=== PATIENT | female | born 1945 ===

== ENCOUNTER 2025-06-17 12:58 | Emergency (ER) | payer MEDICARE, SELFPAY ==
--- NOTE | ~2025-06-17 | XR_ITS ---
EXAMINATION: XR chest 2V 06/17/2025 15:27 INDICATION: Shortness of breath. Upper respiratory infection. PROCEDURE: 2 view chest COMPARISON: No prior studies for comparison. FINDINGS: The lungs are clear. The cardiomediastinal silhouette is within normal limits. There are no pleural effusions. There is no pneumothorax suspected. IMPRESSION: 1: NO ACUTE CARDIOPULMONARY DISEASE. Reviewed, dictated and finalized at location O. E LAB ANALYST
--- NOTE | ~2025-06-17 | CT_ITS ---
EXAMINATION: CTA chest PE protocol DATE: 06/17/2025 17:07 INDICATION: Shortness of breath TECHNIQUE: Computed tomography (CT) pulmonary angiogram of the chest was performed with 100 mL Omnipaque-350 intravenous contrast. Additional 3D reconstructions utilizing coronal maximum intensity projection (MIP) were performed. Automated exposure control and iterative reconstruction technique were employed. The dose-length product was 142.45 mGy-cm. COMPARISON: None FINDINGS: No pulmonary embolism. Mild emphysema. No pneumonia, pulmonary edema, pleural effusion or pneumothorax. Heart size is normal. Small amount of atherosclerotic coronary artery calcification. No pericardial effusion. Thoracic aorta is normal in caliber with no dissection. No pathologically enlarged thoracic lymphadenopathy. Visualized upper abdomen is unremarkable. Bones are unremarkable. IMPRESSION: 1. No pulmonary embolism or other acute cardiopulmonary disease. 2. Mild emphysema. Reviewed, dictated and finalized at location A. ER STITCHER
--- OUTSIDE RECORDS SUMMARY | 2025-06-17 13:01 | XMS_ITS | Encounter Summary ---
Author Organization [facility] Address [address] [place] [address] Care Team Providers Care Single Ending Machine Operator Name Role Phone Alis Hendrix RN Unavailable Unavailable Jasiel Rodriguez MD Primary Care Provider Encounter Details Date Type Department Care Team (Late st Contact Info) Description 04/30/2025 Results Follow-Up [facility] - Internal Medicine [address] [facility] [address] [place] [address] Jasiel Rodriguez MD [address] [place] [address] [address] [place] [address] Social History Tobacco Use Types Packs/Day Years Used Date Smoking Tobacco: Former Cigarettes 50 1 06/25/1965 - 04/25/2016 Smokeless Tobacco: Never Alcohol Use Standard Drinks/Week Comments Yes 0 (1 standard drink = 0.6 oz pur e alcohol) socially PHQ-2 Answer Date Recorded Patient Health Questionnaire-2 Score 0 04/27/2025 Comments No Sex and Gender Information Value Date Recorded Sex Assigned at Not on file Legal Sex Female 6:14 AM INTERIOR WIRER Gender Identity Not on file Sexual Orientation Not on file documented as of this encounter Functional Status * Is person deaf or have serious hearing difficulty? Answer Date of Assessment Author No 04/26/2016 1:51 AM INTERIOR WIRER Lila Sterling RN * Is person blind or have serious difficulty seeing? Answer Date of Assessment Author No 04/26/2016 1:51 AM Lila Monzon RN * Does person have serious difficulty walking/climbing stairs? Answer Date of Assessment Author No 04/26/2016 1:51 AM Lila Monzon RN * Does person have difficulty dressing/bathing? Answer Date of Assessment Author No 04/26/2016 1:51 AM Lila Monzon RN * Does person have difficulty doing errands alone? Answer Date of Assessment Author No 04/26/2016 1:51 AM Lila Monzon RN documented as of this encounter Mental Status * Does person have difficulty concentrating/remembering/making decisions? Answer Entry Date Author No 04/26/2016 1:51 AM Lila Monzon RN documented in this encounter Plan of Treatment Upcoming Encounters Date Type Department Care Team (Late st Contact Info) Description 10/29/2025 9:00 AM CDT Office Visit [facility] - Internal Medicine [address] [place] [address] [place] [phone] Jasiel Rodriguez MD [address] [place] [address] [address] [place] [address] documented as of this encounter Visit Diagnoses Not on filedocumented in this encounter Care Teams Single Ending Machine Operator Relationship Specialty Start Date End Date Jasiel Rodriguez MD [address] [place] [phone] PCP - General Internal Medicine 04/29/25 Alis Hendrix RN Registered Nurse - Cardiopulmonary Rehab 04/26/16 documented as of this encounter
--- OUTSIDE RECORDS SUMMARY | 2025-06-17 13:01 | XMS_ITS | Clinical Summary ---
Author Organization [facility] Address [address] [place] [address] Care Team Providers Care Earth Auger Operator Name Role Phone Alis Hendrix RN Unavailable Unavailable Jasiel Rodriguez MD Primary Care Provider Source Comments [facility],non-owned Affiliates and Associated Physician Practices is amultiple site organization consisting of ambulatory clinics and hospital sitesin [place], [place], [place] and [place]. This disclosure is being madepursuant to the Care Everywhere program and may not contain all information available regarding this patient. Last updated 18.[facility] Allergies Active Allergy Reactions Criticality Noted Date Comments Aspirin Anaphylaxis High 07/09/2019 Shellfish Anaphylaxis High 07/09/2019 Throat swelling [place] Angioedema High 07/09/2019 Throat swelling, itching Medications * Be aware that medications may not be up to date on this document. Alwaysverify current medications with the patient. fluticasone-umeclidiniu m-vilanterol (Trelegy Ellipta) 100-62.5-25 MCG/ACT inhalerIndications:Business Applications Specialist nasir obstructive pulmonary disease, unspecified COPD type (HCC) Inhale 1 (one) puff by mouth once daily 60 Each 5 04/29/20 25 Active albuterol HFA (Proventil; Ventolin; Proair) 108 (90 Base) MCG/ACT inhalerIndications:Business Applications Specialist nasir obstructive pulmonary disease, unspecified COPD type (HCC) Inhale 2 (two) puffs by mouth every 6 hours as needed 6.7 g 3 04/29/20 25 Active simvastatin (Zocor) 40 MG tabletIndications:Pure hypercholesterolemia Take 1 (one) tablet by mouth at bedtime 90 tablet 3 04/29/20 25 Active albuterol (Proventil;Ventolin) (2.5 MG/3ML) 0.083% nebulizer solution Inhale 2.5 (two and one-half) mg by mouth every 4 hours as needed for shortness of breath 75 mL 05/21/20 25 Active Active Problems Problem Noted Date Diagnosed Date Type 2 diabetes mellitus wit hout complication, without long-term current use of insulin 04/29/2025 Pure hypercholesterolemia 04/29/2025 COPD (chronic obstructive pulmonary disease) Overview (09/23/2020): Brad Sarmiento MD 03/17/20 Atherosclerosis of aorta Overview (09/23/2020): Chest xray 04/25/16 Encounters Date Type Department Care Team Description 04/30/2025 Results Follow-Up [facility] - Internal Medicine [address] [place] [phone] Jasiel Rodriguez MD 04/29/2025 10:45 AM SPACE SYSTEMS OPERATIONS MANAGER Office Visit [facility] - Internal Medicine [address] [place] [phone] Jasiel Rodriguez MD Routine general medical examination at health care facility (Primary Dx); Type 2 diabetes mellitus without complication, without long-term current use of insulin (HCC); Chronic obstructive pulmonary disease, unspecified COPD type (HCC); Chronic right shoulder pain; Pure hypercholesterolemia; Encounter for immunization; Need for influenza vaccination; Need for prophylactic vaccination and inoculation against influenza 04/29/2025 Travel from Last 3 Months Immunizations Immunization Administration Dates Next Due COVID MODERNA 12+ yr 50mcg/0.5mL 04/29/2025,03/18 Covid Pfizer primary monoval ent 12+ yr 0.3mL Purple cap 06/01/2021,09/25/2020,09/04/2020 INFLUENZA VACCINE, ADJUVANTE D, QUADR. (FLUAD QUADRIVALENT; 65Y+) (AIIV4) 08/02/2023 INFLUENZA VACCINE, ADJUVANTE D, TRIV. (FLUAD TRIVALENT; 65Y+) (AIIV3) 04/29/2025,04/01/2024 INFLUENZA VACCINE, HIGH-DOSE , QUADR. (FLUZONE HIGH-DOSE QUADRIVALENT; 65Y+), 0.7 ML (HD-IIV4) 03/17/2020 INFLUENZA VACCINE, QUADR. (F LUZONE; FLULAVAL; FLUARIX; AFLURIA QUADRIVALENT; 6MO+), 0.5 ML (IIV4) 04/27/2016 Pneumococcal Pcv13 Conj 07/09/2019 Zoster Hzv Vacc Recombinant Inj Im 07/09/2019 Family History Relation Name Status Comments Father Mother Social History Tobacco Use Types Packs/Day Years Used Date Smoking Tobacco: Former Cigarettes 50 1 06/25/1965 - 04/25/2016 Smokeless Tobacco: Never Tobacco Cessation:Counseling Given: Not Answered Alcohol Use Standard Drinks/Week Comments Yes 0 (1 standard drink = 0.6 oz pur e alcohol) socially PHQ-2 Answer Date Recorded Patient Health Questionnaire-2 Score 0 04/27/2025 Comments No Sex and Gender Information Value Date Recorded Sex Assigned at Not on file Legal Sex Female 6:14 AM SPACE SYSTEMS OPERATIONS MANAGER Gender Identity Not on file Sexual Orientation Not on file Last Filed Vital Signs Vital Sign Reading Time Taken Comments Blood Pressure 137/88 04/29/2025 11:08 AM SPACE SYSTEMS OPERATIONS MANAGER Pulse 90 04/29/2025 10:50 AM SPACE SYSTEMS OPERATIONS MANAGER Temperature 36.2 C (97.1 F) 07/25/2022 9:18 AM SPACE SYSTEMS OPERATIONS MANAGER Respiratory Rate 18 04/29/2025 10:50 AM SPACE SYSTEMS OPERATIONS MANAGER Oxygen Saturation 95% 04/29/2025 10:50 AM SPACE SYSTEMS OPERATIONS MANAGER Inhaled Oxygen Concentration - - Weight 50.3 kg (111 lb) 04/29/2025 10:50 AM SPACE SYSTEMS OPERATIONS MANAGER Height 157.5 cm (5' 2) 04/29/2025 10:50 AM SPACE SYSTEMS OPERATIONS MANAGER Body Mass Index 20.3 04/29/2025 10:50 AM SPACE SYSTEMS OPERATIONS MANAGER Plan of Treatment Upcoming Encounters Date Type Department Care Team (Late st Contact Info) Description 10/29/2025 9:00 AM CDT Office Visit [facility] - Internal Medicine [address] [place] [address] Jasiel Rodriguez MD [address] [place] [address] Health Maintenance Due Date Last Done Comments DTAP/TDAP/TD VACCINES (1 - Tdap) 1964 PNEUMOCOCCAL VACCINE 50+ (2 of 2 - PPSV23, PCV20, or PCV21) 09/03/2019 07/09/2019 ZOSTER VACCINE (2 of 2) 09/03/2019 07/09/2019 Respiratory Syncytial Virus (RSV) Vaccine Pt: or over 60 yrs (1 - 1-dose 75+ series) 2021 DIABETES RETINOPATHY SCREENING 04/29/2025 DIABETES-FOOT EXAM WITH MONOFILAMENT 04/29/2025 COVID-19 VACCINE ( season) 2025 04/29/2025, 04/01/2024, 06/01/2021, Additional history exists DIABETES-HGB A1C 10/27/2025 04/29/2025, , 02/23/2023, Additional history exists DIABETES - URINE PROTEIN SCREENING 04/29/2026 04/29/2025 DIABETES-SERUM CREATININE 04/29/20262024, 04/16/2024, 02/23/2023, Additional history exists MEDICARE AWV 12 MONTHS 04/29/2026 04/29/2025, 04/01/2024, 01/23/2023, Additional history exists HEPATITIS C SCREENING Completed 07/09/2019 BONE DENSITY TESTING Completed 01/28/2022 DEPRESSION SCREENING Completed 04/29/2025, 08/02/2023, 07/25/2022, Additional history exists INFLUENZA VACCINE Completed 04/29/2025, , 08/02/2023, Additional history exists HEPATITIS B VACCINE Aged Out No longe r eligible based on patient's age to complete this topic HIB VACCINE Aged Out No longer eligi ble based on patient's age to complete this topic HPV VACCINE Aged Out No longer eligi ble based on patient's age to complete this topic MENINGOCOCCAL (Group B) VACCINE SHARED DECISION-MAKING Aged Out No longer eligible based on patient's age to complete this topic MENINGOCOCCAL GROUPS A/C/Y/W VACCINE Aged Out No longer eligible based on patient's age to complete this topic Procedures Procedure Name Priority Date/Time Associated Diagnosis Comments T4 FREE Routine 04/29/2025 12:03 PM SPACE SYSTEMS OPERATIONS MANAGER URINALYSIS MICROSCOPIC ONLY REFLEXED Routine 04/29/2025 12:03 PM SPACE SYSTEMS OPERATIONS MANAGER VITAMIN B12 Routine 04/29/2025 12:03 PM SPACE SYSTEMS OPERATIONS MANAGER Type 2 diabetes mellitus without complication, without long-term current use of insulin ([facility]) LIPID PROFILE Routine 04/29/2025 12:03 PM SPACE SYSTEMS OPERATIONS MANAGER Type 2 diabetes mellitus without complication, without long-term current use of insulin ([facility]) COMPREHENSIVE METABOLIC PANEL Routine 04/29/2025 12:03 PM SPACE SYSTEMS OPERATIONS MANAGER Type 2 diabetes mellitus without complication, without long-term current use of insulin ([facility]) CBC W AUTO DIFFERENTIAL Routine 04/29/2025 12:03 PM SPACE SYSTEMS OPERATIONS MANAGER Type 2 diabetes mellitus without complication, without long-term current use of insulin ([facility]) HEMOGLOBIN A1C Routine 04/29/2025 12:03 PM SPACE SYSTEMS OPERATIONS MANAGER Type 2 diabetes mellitus without complication, without long-term current use of insulin ([facility]) MICROALB/CREAT RATIO URINE RANDOM PANEL Routine 04/29/2025 12:03 PM SPACE SYSTEMS OPERATIONS MANAGER Type 2 diabetes mellitus without complication, without long-term current use of insulin ([facility]) TSH REFLEX FREE T4 Routine 04/29/2025 12 :03 PM SPACE SYSTEMS OPERATIONS MANAGER Type 2 diabetes mellitus without complication, without long-term current use of insulin ([facility]) URINALYSIS REFLEX TO MICROSCOPIC NO CULTURE Routine 04/29/2025 12:03 PM SPACE SYSTEMS OPERATIONS MANAGER Type 2 diabetes mellitus without complication, without long-term current use of insulin ([facility]) DEXA BONE DENSITY AXIAL SKELETON Routine 01/28/2022 9:24 AM CDT Menopause HEPATITIS C ANTIBODY Routine 07/09/2019 2:50 PM SPACE SYSTEMS OPERATIONS MANAGER Need for hepatitis C screening test from Last 3 Months or Most Recently Relevant to Health Maintenance Results * (ABNORMAL) URINALYSIS MICROSCOPIC ONLY REFLEXED (04/29/2025 12:03 PM SPACE SYSTEMS OPERATIONS MANAGER) WBC UA 0-5 0 - 5 # /hpf [facility] INSURANCE BILL RBC UA 6-10(A) 0 - 5 # /hpf [facility] INSURANCE BILL Epithelial Cells (non renal) 0-2 0 - 5 /hpf [facility] INSURANCE BILL Mucus UA 1+ /LPF [facility] INSURANCE BILL Bacteria UA None seen None Seen [facility] INSURANCE BILL 04/29/2025 12:0 3 PM SPACE SYSTEMS OPERATIONS MANAGER 04/29/2025 Narrative [facility] INSURANCE BILL - 04/29/2025 9:08 PM SPACE SYSTEMS OPERATIONS MANAGER Performed at: [address] [place] [address], [place] [id number] Materials Director: Donna Lozano [facility], Phone: [phone] Jasiel Rodriguez MD LAB - URINALYSIS ORDERA BLES Final Result [facility] INSURANCE BILL [address] [place] [address] * (ABNORMAL) TSH REFLEX FREE T4 (04/29/2025 12:03 PM SPACE SYSTEMS OPERATIONS MANAGER) TSH 5.586(H) 0.350 - 4.940 uIU/mL [facility] INSURANCE BILL Blood BLOOD SPECIMEN / Unknown 04/29/2025 12:03 PM SPACE SYSTEMS OPERATIONS MANAGER 04/29/2025 Narrative [facility] INSURANCE BILL - 04/30/2025 12:08 AM SPACE SYSTEMS OPERATIONS MANAGER Performed at: [address] [place], [place] [id number] [address], [place] [id number] Materials Director: Donna Lozano [facility], Phone: [phone] Jasiel Rodriguez MD LAB - CHEMISTRY ORDERAB LES Final Result Performing Organization Address City/[facility]/ZIP Co de Phone Number [facility] INSURANCE BILL [address] [place] [address] * MICROALB/CREAT RATIO URINE RANDOM PANEL (04/29/2025 12:03 PM SPACE SYSTEMS OPERATIONS MANAGER) Creatinine Urine 179.65 mg/dL [facility] INSURANCE BILL Microalbumin Urine 1.4 mg/dL [facility] INSURANCE BILL Microalbumin/Crea tinine Ratio 7 <30 mg/g [facility] INSURANCE BILL Urine URINE SPECIMEN OBTAINED BY CLEAN CATCH PROCEDURE / Unknown 04/29/2025 12:03 PM SPACE SYSTEMS OPERATIONS MANAGER 04/29/2025 Narrative [facility] INSURANCE BILL - 04/29/2025 9:08 PM SPACE SYSTEMS OPERATIONS MANAGER Performed at: [address] [place], [place] [address], [place] [id number] Materials Director: Donna Lozano [facility], Phone: [phone] Jasiel Rodriguez MD LAB - URINE CHEMISTRY O RDERABLES Final Result Performing Organization Address [facility] Co de Phone Number [facility] INSURANCE BILL [address] [place] [address] * (ABNORMAL) URINALYSIS REFLEX TO MICROSCOPIC NO CULTURE (04/29/2025 12:03 PM SPACE SYSTEMS OPERATIONS MANAGER) [facility] Specific [place] UA 1.031(H) 1.005 - 1.030 [facility] INSURANCE BILL pH UA 6.0 5.0 - 8.0 pH [facility] INSURANCE BILL Color UA Yellow [facility] INSURANCE BILL Comment:REFERENCE RANGE: Yel low, Straw Appearance Clear Clear [facility] INSURANCE BILL Leukocyte UA Negative Negative [facility] INSURANCE BILL Protein UA Trace(A) Negative [facility] INSURANCE BILL Glucose UA Normal Normal [facility] INSURANCE BILL Ketone UA 1+(A) Negative [facility] INSURANCE BILL Occult Blood Urine Trace(A) Negative [facility] INSURANCE BILL Bilirubin UA Negative Negative [facility] INSURANCE BILL Urobilinogen Normal Normal mg/dL [facility] INSURANCE BILL Nitrite UA Negative Negative [facility] INSURANCE BILL Urine URINE SPECIMEN OBTAINED BY CLEAN CATCH PROCEDURE / Unknown 04/29/2025 12:03 PM SPACE SYSTEMS OPERATIONS MANAGER 04/29/2025 Narrative [facility] INSURANCE BILL - 04/29/2025 9:08 PM SPACE SYSTEMS OPERATIONS MANAGER Performed at: 01 - [facility] [address] [place], [place] [id number] Materials Director: Donna Lozano [facility], Phone: [phone] Jasiel Rodriguez MD LAB - URINALYSIS ORDERA BLES Final Result [facility] INSURANCE BILL [address] [place] [address] * (ABNORMAL) HEMOGLOBIN A1C (04/29/2025 12:03 PM SPACE SYSTEMS OPERATIONS MANAGER) Hemoglobin A1c 6.3(H) <5.7 % [facility] INSURANCE BILL Comment: AVERAGE GLUCOSE MG/DL BLOOD 134 mg/dL HbA1c Interpretation: Normal: < 5.7% Pre-diabetes: 5.7-6.4% Diabetes: Equal to or greater than 6.5% Test results diagnostic of diabetes should be repeated for c onfirmation. Treatment target values recommended by ADA and other clinica l organizations should be used to evaluate metabolic control in patients. This test should not replace glucose testing for patients wi th Type 1 diabetes, pediatric patients, or women. Falsely low HbA1c results may be observed in patients with c linical conditions that shorten erythrocyte life span or dec rease mean erythrocyte age such as the presence of unstable hemoglobin variants, elevated hemoglobin F level or other ca uses of hemolytic anemia. HbA1c may not accurately reflect glycemic control when clinical conditions that affect erythr ocyte survival are present. Severe Iron deficiency anemia m ay yield falsely high results. Hemoglobin A1c assay should not be used to diagnose or monitor diabetes in patients with malignancy, recent blood transfusion, chronic kidney or loy er disease. This method may yield falsely low results when hemoglobin (HbF) exceeds 5% in the specimen. The [place] Alinity assay for the measurement of HbA1c is a [facility] Glycohemoglobin Standardization Program (NGSP) certi fied method. Blood BLOOD SPECIMEN / Unknown 04/29/2025 12:03 PM SPACE SYSTEMS OPERATIONS MANAGER 04/29/2025 Narrative [facility] INSURANCE BILL - 04/29/2025 11:08 PM SPACE SYSTEMS OPERATIONS MANAGER Performed at: [facility] [address] [place], [place] [id number] Materials Director: Donna Lozano [facility], Phone: [phone] Jasiel Rodriguez MD LAB - CHEMISTRY ORDERAB LES Final Result [facility] INSURANCE BILL [address] [place] [address] * (ABNORMAL) CBC WITH DIFFERENTIAL (04/29/2025 12:03 PM SPACE SYSTEMS OPERATIONS MANAGER) WBC 9.2 4.0 - 10.7 x10E9/L [facility] INSURANCE BILL RBC 4.48 3.90 - 5.20 x10E12/L [facility] INSURANCE BILL Hemoglobin 13.7 11.9 - 15.8 gm/dL [facility] INSURANCE BILL Hematocrit 44.5 34.8 - 46.1 % [facility] INSURANCE BILL MCV 99.3(H) 80.0 - 98.0 fL [facility] INSURANCE BILL MCH 30.6 26.7 - 33.6 pg [facility] INSURANCE BILL MCHC 30.8(L) 31.7 - 36.3 gm/dL [facility] INSURANCE BILL RDW 13.8 11.3 - 14.8 % [facility] INSURANCE BILL Platelet Count 334 150 - 420 x10E9/L [facility] INSURANCE BILL Comment:MPV (CS) 9.0 fL 7.8 -11.4 Granulocytes % 58.0 41.0 - 74.0 % [facility] INSURANCE BILL Lymphocytes % 30.3 17.0 - 47.0 % [facility] INSURANCE BILL Monocytes % 8.8 3.0 - 11.0 % [facility] INSURANCE BILL Eosinophils % 1.6 0.0 - 7.0 % [facility] INSURANCE BILL Basophils % 0.9 0.0 - 1.6 % [facility] INSURANCE BILL Granulocytes Absolute 5.35 1.60 - 7.50 x10E9/L [facility] INSURANCE BILL Lymphocytes Absolute 2.79 1.00 - 4.40 x10E9/L [facility] INSURANCE BILL Monocytes Absolute 0.81 0.15 - 1.00 x10E9/L [facility] INSURANCE BILL Eosinophils Absolute 0.15 0.00 - 0.60 x10E9/L [facility] INSURANCE BILL Basophils Absolute 0.08 0.00 - 0.13 x10E9/L [facility] INSURANCE BILL Immature Granulocytes 0.4 0.0 - 1.0 % [facility] INSURANCE BILL Blood BLOOD SPECIMEN / Unknown 04/29/2025 12:03 PM SPACE SYSTEMS OPERATIONS MANAGER 04/29/2025 Narrative [facility] INSURANCE BILL - 04/29/2025 9:08 PM SPACE SYSTEMS OPERATIONS MANAGER Performed at: 01 - [place] [address], [place], [place] [id number] Materials Director: Donna Lozano [facility], Phone: [phone] Jasiel Rodriguez MD LAB - HEMATOLOGY ORDERA BLES Final Result [facility] INSURANCE BILL [address] [place] [address] * (ABNORMAL) COMPREHENSIVE METABOLIC PANEL (04/29/2025 12:03 PM SPACE SYSTEMS OPERATIONS MANAGER) Glucose 105(H) 70 - 99 mg/dL [facility] INSURANCE BILL BUN 22 7 - 26 mg/dL [facility] INSURANCE BILL Creatinine 0.93 0.50 - 1.20 mg/dL [facility] INSURANCE BILL eGFR by CKD-EPI 63(L) >=90 mL/min/1.7 3 m2 [facility] INSURANCE BILL Comment: Estimated Glomerular Filtration Rate (eGFR) calculated using the CKD-EPI Creatinine Equation (2020), per the National [place] d[place] Foundation and [place] Society of Nephrology recommend ations. Sodium 143 136 - 145 mmol/L [facility] INSURANCE BILL Potassium 4.3 3.5 - 5.1 mmol/L [facility] INSURANCE BILL Chloride 106 98 - 107 mmol/L [facility] INSURANCE BILL CO2 26 22 - 29 mmol/L [facility] INSURANCE BILL Calcium 9.1 8.4 - 10.4 mg/dL [facility] INSURANCE BILL Protein Total 7.4 6.4 - 8.3 gm/dL [facility] INSURANCE BILL Albumin 4.2 3.1 - 4.5 gm/dL [facility] INSURANCE BILL Bilirubin Total 0.4 0.2 - 1.2 mg/dL [facility] INSURANCE BILL Alkaline Phosphatase 59 40 - 150 U/L [facility] INSURANCE BILL AST 35 10 - 48 U/L [facility] INSURANCE BILL ALT 22 6 - 57 U/L [facility] INSURANCE BILL Blood BLOOD SPECIMEN / Unknown 04/29/2025 12:03 PM SPACE SYSTEMS OPERATIONS MANAGER 04/29/2025 Narrative [facility] INSURANCE BILL - 04/29/2025 11:08 PM SPACE SYSTEMS OPERATIONS MANAGER Performed at: [address] [place] [address] [place] [id number] Materials Director: Donna Lozano [facility], Phone: [phone] Jasiel Rodriguez MD LAB - CHEMISTRY ORDERAB LES Final Result [facility] INSURANCE BILL [address] [place] [address] * VITAMIN B12 (04/29/2025 12:03 PM SPACE SYSTEMS OPERATIONS MANAGER) Pathologist [facility] [place] Vitamin B12 454 213 - 816 pg/mL [facility] INSURANCE BILL Blood BLOOD SPECIMEN / Unknown 04/29/2025 12:03 PM SPACE SYSTEMS OPERATIONS MANAGER 04/29/2025 Narrative [facility] INSURANCE BILL - 04/29/2025 11:08 PM SPACE SYSTEMS OPERATIONS MANAGER Performed at: [address] [place] [address] [address] [place] [id number] Materials Director: Donna Lozano [facility], Phone: [phone] Jasiel Rodriguez MD LAB - CHEMISTRY ORDERAB LES Final Result [facility] INSURANCE BILL [address] [place] [address] * T4 FREE (04/29/2025 12:03 PM SPACE SYSTEMS OPERATIONS MANAGER) T4 Free Direct 0.96 0.70 - 1.50 ng/dL [facility] INSURANCE BILL 04/29/2025 12:0 3 PM SPACE SYSTEMS OPERATIONS MANAGER 04/29/2025 Narrative [facility] INSURANCE BILL - 04/30/2025 12:08 AM SPACE SYSTEMS OPERATIONS MANAGER Performed at: [address] [place], [place] [address] [address], [place] [id number] Materials Director: Donna Lozano [facility], Phone: [phone] Jasiel Rodriguez MD LAB - CHEMISTRY ORDERAB LES Final Result [facility] INSURANCE BILL [address] [place] [address] * (ABNORMAL) LIPID PROFILE (LIPID PANEL) (04/29/2025 12:03 PM SPACE SYSTEMS OPERATIONS MANAGER) [facility] Cholesterol 230(H) <200 mg/dL [facility] INSURANCE BILL Triglycerides 116 <150 mg/dL [facility] INSURANCE B[facility] HDL Cholesterol 77 >40 mg/dL [facility] INSURANCE B[facility] VLDL Calculated 23 <=30 mg/dL [facility] INSURANCE BILL LDL Calculated 130(H) <130 mg/dL [facility] INSURANCE BILL Comment:LDL is calculated us ing the Friedewald equation. Blood BLOOD SPECIMEN / Unknown 04/29/2025 12:03 PM SPACE SYSTEMS OPERATIONS MANAGER 04/29/2025 Narrative [facility] INSURANCE BILL - 04/29/2025 11:08 PM SPACE SYSTEMS OPERATIONS MANAGER Performed at: [address] [place] [address], [place] [id number] Materials Director: Donna Lozano [facility], Phone: [phone] us Jasiel Rodriguez MD LAB - CHEMISTRY ORDERAB LES Final Result [facility] INSURANCE BILL [address] [place] [address] * DEXA BONE DENSITY AXIAL SKELETON (01/28/2022 9:24 AM CDT) Anatomical Region Laterality Modality Mammography 01/28/2022 9:45 AM CDT Narrative 01/28/2022 9:47 AM CDT Procedure Title from EPIC/RIS: DEXA BONE DENSITY AXIAL SKELETON HISTORY: Z78.0: Asymptomatic menopausal state postmenopausal woman LOCATION: [facility] LUMBAR SPINE (L1-L4): Bone mineral density (g/cm2): 0.723 Current T-score: -2.9 Current Z-score: -0.5 LEFT FEMORAL NECK: Bone mineral density (g/cm2): 0.652 Current T-score: -1.8 Current Z-score: 0.3 RIGHT FEMORAL NECK: Bone mineral density (g/cm2): 0.669 Current T-score: -1.6 Current Z-score: 0.5 BONE DENSITY ASSESSMENT: WHO Category: Osteoporosis based on lumbar values. FRAX CALCULATION The 10-year risk for a major osteoporotic fracture, %: 5.8 The 10-year risk for a hip fracture, %: 1.5 Please see the PACS images for additional details. World Health Organization definitions of standard deviations relative to the mean T-score: Normal bone density = -1.0 and above Osteopenia = between -1.0 and -2.5 Osteoporosis = -2.5 and below > Interpreting Provider: Abbey Wood MD on 01/28/2022 9:47 AM Procedure Note Abbey Wood MD - 01/28/2022 Procedure Title from [facility]/RIS: DEXA BONE DENSITY AXIAL SKELETON HISTORY: Z78.0: Asymptomatic menopausal state postmenopausal woman LOCATION: [facility] LUMBAR SPINE (L1-L4): Bone mineral density (g/cm2): 0.723 Current T-score: -2.9 Current Z-score: -0.5 LEFT FEMORAL NECK: Bone mineral density (g/cm2): 0.652 Current T-score: -1.8 Current Z-score: 0.3 RIGHT FEMORAL NECK: Bone mineral density (g/cm2): 0.669 Current T-score: -1.6 Current Z-score: 0.5 BONE DENSITY ASSESSMENT: WHO Category: Osteoporosis based on lumbar values. FRAX CALCULATION The 10-year risk for a major osteoporotic fracture, %: 5.8 The 10-year risk for a hip fracture, %: 1.5 Please see the PACS images for additional details. World Health Organization definitions of standard deviations relative to the mean T-score: Normal bone density = -1.0 and above Osteopenia = between -1.0 and -2.5 Osteoporosis = -2.5 and below > Interpreting Provider: Abbey Wood MD on 01/28/2022 9:47 AM us Brad Sarmiento MD DEXA ORDERABLES Final Res ult * HEPATITIS C ANTIBODY (07/09/2019 2:50 PM SPACE SYSTEMS OPERATIONS MANAGER) Hepatitis C Antibody Non Reactive Non Reactive [facility] INSURANCE BILL Comment: Non Reactive - Antibodies to Hepatitis C virus (HCV) were no t detected, result does not exclude early acute HCV infection. FASTING Blood BLOOD SPECIMEN / Unknown 07/09/2019 2:50 PM SPACE SYSTEMS OPERATIONS MANAGER 07/09/2019 Narrative Resulting Agency Comment Lab Testing performed at: [facility] [address] [place] [phone] [place] Skylar Lux MD LAB - CHEMISTRY ORDERABLES Final Result [facility] INSURANCE BILL [address] [place] [address] from Last 3 Months or Most Recently Relevant to Health Maintenance Insurance MEDICARE Advance Directives * Full Code (Latest Code Status on File) Date Activated Date Inactivated Comments 04/26/2016 12:48 AM 04/29/2016 9:06 PM Care Teams Earth Auger Operator Relationship Specialty Start Date End Date Jasiel Rodriguez MD [address] [place] [address] PCP - General Internal Medicine 04/29/25 Alis Hendrix RN Registered Nurse - Cardiopulmonary Rehab 04/26/16
[2025-06-17 13:03] VITALS: BP 172/84; PULSE 98; RESP 20; TEMP 36.6; O2SAT 94
--- NOTE | 2025-06-17 13:41 | ECG_ITS ---
Test Date: 2025-06-17 13:53:03 Measurements Intervals [place] Rate: 80 P: 72 TX: 159 QRS: -8 QRSD: 77 T: 41 QT: 373 QTc: 432 Interpretive Statements SINUS RHYTHM WITH SINUS ARRHYTHMIA LOW QRS VOLTAGE- DIFFUSE LEADS BASELINE ARTIFACT- I, II, AVR, AVL, AVF BORDERLINE ECG No previous ECG available for comparison Electronically Signed On 06-17-2025 21:30:13 [employer] by Jesse Murray D.O.
--- NOTE | 2025-06-17 14:55 | ED.SOB ---
HPI - SOB/Dyspnea General Chief Complaint: Shortness of Breath/Dyspnea <RAMÍREZ Segovia Last Filed: 06/17/25 15:03> Stated Complaint: SOB <RAMÍREZ Segovia Last Filed: 06/17/25 15:03> Time Seen by Provider: 06/17/25 14:55 <RAMÍREZ Segovia Last Filed: 06/17/25 15:03> Focused HPI: Patient is a 79-year-old female, with PMH of COPD, who presents to the ED with c/o SOB. Patient's daughter at bedside assisted in providing information. Reports patient has had cold sx's over the past couple weeks. Reports nasal/chest congestion, rhinorrhea, SOB, cough- productive of dark gold sputum. Was started on Trelegy for her COPD around 1 month ago. Has been using this and her rescue inhalers w/o improvement. Had increased SOB today with exertion which prompted her presentation. Denies CP, but does c/o occasional heart burn. Denies fevers. GENERAL: Elderly, frail, and in no acute distress. HEAD: Normocephalic, atraumatic. CHEST: No respiratory distress. Decreased lung sounds in L lung base. Scattered rhonchi HEART: Regular rate and rhythm.? NEURO: ?Alert and oriented x3. Patient screened in triage and initial orders placed.? ?Additional care and disposition to be based upon?diagnostic testing and treatment. <RAMÍREZ Segovia Last Filed: 06/17/25 15:03> Source: patient and family <RAMÍREZ Segovia Last Filed: 06/17/25 15:03> Mode of arrival: ambulatory <RAMÍREZ Segovia Last Filed: 06/17/25 15:03> Limitations: no limitations <RAMÍREZ Segovia Last Filed: 06/17/25 15:03> History of Present Illness HPI Narrative: Agree with the above with the following additions/corrections: Patient with Hx COPD Reports shortness of breath, a productive cough, nasal congestion. Family believes that her symptoms may be due to the new integration of Trelegy (started approx 1 month ago) in addition to a component of anxiety. Quit smoking approximately 10 years ago. Had denied pain initially, now reports a little chest pain. No fevers/chills. Using her rescue inhaler. PCP is in [facility], dr Rodriguez. Family called their office , they advised presenting to ED. Patient does not have a jack of all trades. Not on anticoagulation. No lower extremity edema. denies hemoptysis. <Stacy Sorto MD - Last Filed: 06/18/25 20:03> Related Data Allergies/Adverse Reactions: Allergies Allergy/AdvReac Type Severity Reaction Status Date / Time crab Allergy Intermediate Hives Verified 06/17/25 13:06 strawberry Allergy Intermediate Hives Verified 06/17/25 13:06 aspirin Allergy Unknown Verified 06/17/25 13:06 <Юлия Stern PA-C - Last Filed: 06/17/25 15:03> PMFSH Past Medical History Medical History: Medical History COPD (chronic obstructive pulmonary disease) <Юлия Stern PA-C - Last Filed: 06/17/25 15:03> Social History Social History: Social History Smoking status: Former smoker <Юлия Stern PA-C - Last Filed: 06/17/25 15:03> Exam Narrative: GENERAL: Well-appearing, well-nourished, and in no acute distress. HEAD: Normocephalic, atraumatic. EYES: Non injected, non icteric ENT: No epistaxis. Nasal congestion +. Gross auditory acuity intact. NECK: Supple. No meningismus. CHEST: Speaking in full sentences. No respiratory distress. Lungs clear to auscultation bilaterally without wheezes, crackles, consolidation anteriorly or posteriorly. Not labored. HEART: Regular rate and rhythm. . ABDOMEN: Soft, nondistended. No rigidity or guarding. Not peritoneal EXTREMITIES: Normal range of motion. No lower extremity edema. SKIN: Warm, dry, no rash. NEURO: No focal deficits. Alert and oriented. Answering questions. Following commands. Normal speech without aphasia or dysarthria. PSYCH: Normal mood and affect. <Stacy Sorto MD - Last Filed: 06/18/25 20:03> Course Vital Signs Vital signs: Vital Signs Temperature 97.8 F 06/17/25 13:03 Pulse Rate 98 06/17/25 13:03 Respiratory Rate 20 06/17/25 13:03 Blood Pressure 172/84 H 06/17/25 13:03 Pulse Oximetry 94 06/17/25 13:03 Oxygen Delivery Room Air 06/17/25 13:03 Temperature 97.8 F 06/17/25 15:01 Pulse Rate 83 06/17/25 19:33 Respiratory Rate 18 06/17/25 19:33 Blood Pressure 148/81 H 06/17/25 19:33 Pulse Oximetry 100 06/17/25 19:33 Oxygen Delivery Room Air 06/17/25 15:20 <Юлия Stern PA-C - Last Filed: 06/17/25 15:03> Vital Signs Temperature 97.8 F 06/17/25 13:03 Pulse Rate 98 06/17/25 13:03 Respiratory Rate 20 06/17/25 13:03 Blood Pressure 172/84 H 06/17/25 13:03 Pulse Oximetry 94 06/17/25 13:03 Oxygen Delivery Room Air 06/17/25 13:03 Temperature 97.8 F 06/17/25 15:01 Pulse Rate 83 06/17/25 19:33 Respiratory Rate 18 06/17/25 19:33 Blood Pressure 148/81 H 06/17/25 19:33 Pulse Oximetry 100 06/17/25 19:33 Oxygen Delivery Room Air 06/17/25 15:20 <Stacy Sorto MD - Last Filed: 06/18/25 20:03> MDM MDM Narrative Medical decision making narrative: MSE by MONICA in triage <Юлия Stern PA-C - Last Filed: 06/17/25 15:03> MSE by MONICA in triage Patient with PMH COPD (on rescue inhaler and recently started 1 month ago) presents with report of SOB, productive cough and nasal congestion. In the emergency department she is afebrile with vital signs notable for hypertension. D-dimer is mildly elevated. Can age adjust however she does not have any wheezes on exam, BNP and viral swab normal as is chest x-ray and troponin. Given no alternative etiology therefore, will proceed with CT imaging to rule out pe. CBC with mild abnormalities on the differential but otherwise without leukocytosis anemia or thrombocytopenia. CT with only mild emphysema. DuoNeb ordered. On reassessment, she remains without wheezes. She and family are updated on her workup which has otherwise been reassuring. They states that patient's primary concern is her nasal congestion. She is given a dose of Afrin on the emergency department and given the presumption that this bottle is discarded after single use, a prescription for the same. Written prescription is provided given uncertainty of which pharmacies are open or closed given the holiday. Advised follow-up with primary care physician. Also provided referral contact information for pulmonary. Similarly, she is given a dose Tessalon Perles and prescribed additional. <Stacy Sorto MD - Last Filed: 06/18/25 20:03> Differential Diagnosis Differential Diagnosis: acute viral syndrome, bronchitis; acute copd exacerbation; PNA; PE; acs; pulmonary hypertension <Stacy Sorto MD - Last Filed: 06/18/25 20:03> Lab Data MDM Lab Attestation statement: I personally reviewed the patient's lab results. <Stacy Sorto MD - Last Filed: 06/18/25 20:03> Lab results narrative: Lactic acid normal <Stacy Sorto MD - Last Filed: 06/18/25 20:03> Result diagrams: 06/17/25 15:08 06/17/25 15:08 <Юлия Stern PA-C - Last Filed: 06/17/25 15:03> Labs: Lab Results 06/17/25 Range/Units 15:08 WBC 9.2 (4.5-10.0) K/mm3 RBC 4.44 (4.2-5.4) M/mm3 Hgb 13.7 (12.0-15.0) g/dL Hct 42.0 (37.0-47.0) % MCV 94.6 (80-100) fl MCH 30.9 (26-34) pg MCHC 32.6 (32-36) g/dl RDW 13.6 (11.5-14.5) % Plt Count 349 (150-375) k/mm3 MPV 8.4 (7.4-10.4) fl Immature Gran % (Auto) 0.3 (0-0.5) % Neut % (Auto) 53.0 (45.5-73.1) % Lymph % (Auto) 25.0 (18.3-44.2) % [place] % (Auto) 7.6 (2.6-8.5) % Eos % (Auto) 12.8 H (0-4.4) % Baso % (Auto) 1.3 H (0.2-1.2) % Lymph # (Auto) 2.29 (0.9-3.2) K/mm3 [place] # (Auto) 0.7 H (0.1-0.6) K/mm3 Eos # (Auto) 1.2 H (0-0.3) K/mm3 Baso # (Auto) 0.1 (0.0-0.1) K/mm3 Abs Immat Gran (auto) 0.03 (0.00-0.031) K/mm3 Absolute Neuts (auto) 4.9 (1.3-6.7) K/mm3 Absolute Nucleated RBC 0.000 (0.0-0.012) K/mm3 Nucleated RBC % 0.0 (0.0-0.2) % PT 12.9 (11.1-14.7) Seconds INR 1.0 APTT 27.5 (22.3-36.8) Seconds D-Dimer 0.62 H (<0.48) ug/mL Sodium 137 (137-145) mmol/L Potassium 4.2 (3.4-5.0) mmol/L Chloride 106 (98-107) mmol/L Carbon Dioxide 25 (22-30) mmol/L Anion Gap 6 (4-12) mmol/L BUN 16 (7-17) mg/dL Creatinine 0.85 (0.7-1.0) mg/dL Estim Creat Clear Calc Not Reportable Estimated GFR > 60 (59 - ) Glucose 116 H (65-110) mg/dL Lactic Acid 1.0 (0.7-2.0) mmol/L Calcium 9.1 (8.4-10.2) mg/dL Total Bilirubin 0.4 (0.2-1.3) mg/dL AST 36 (14-36) U/L ALT 19 (6-35) U/L Alkaline Phosphatase 76 (38-126) U/L Troponin I < 0.012 (0.000-0.034) ng/mL NT-Pro-B Natriuret Pep 94 (19.9-100) pg/mL Total Protein 7.7 (6.3-8.2) g/dL Albumin 4.2 (3.5-5.1) g/dL Influenza A (RT-PCR) Negative (Negative) Influenza B (RT-PCR) Negative (Negative) RSV (RT-PCR) Negative (Negative) SARS-CoV-2 RNA (RT-PCR) Negative (Negative) <Юлия Stern PA-C - Last Filed: 06/17/25 15:03> Lab Results 06/17/25 Range/Units 15:08 WBC 9.2 (4.5-10.0) K/mm3 RBC 4.44 (4.2-5.4) M/mm3 Hgb 13.7 (12.0-15.0) g/dL Hct 42.0 (37.0-47.0) % MCV 94.6 (80-100) fl MCH 30.9 (26-34) pg MCHC 32.6 (32-36) g/dl RDW 13.6 (11.5-14.5) % Plt Count 349 (150-375) k/mm3 MPV 8.4 (7.4-10.4) fl Immature Gran % (Auto) 0.3 (0-0.5) % Neut % (Auto) 53.0 (45.5-73.1) % Lymph % (Auto) 25.0 (18.3-44.2) % [place] % (Auto) 7.6 (2.6-8.5) % Eos % (Auto) 12.8 H (0-4.4) % Baso % (Auto) 1.3 H (0.2-1.2) % Lymph # (Auto) 2.29 (0.9-3.2) K/mm3 [place] # (Auto) 0.7 H (0.1-0.6) K/mm3 Eos # (Auto) 1.2 H (0-0.3) K/mm3 Baso # (Auto) 0.1 (0.0-0.1) K/mm3 Abs Immat Gran (auto) 0.03 (0.00-0.031) K/mm3 Absolute Neuts (auto) 4.9 (1.3-6.7) K/mm3 Absolute Nucleated RBC 0.000 (0.0-0.012) K/mm3 Nucleated RBC % 0.0 (0.0-0.2) % PT 12.9 (11.1-14.7) Seconds INR 1.0 APTT 27.5 (22.3-36.8) Seconds D-Dimer 0.62 H (<0.48) ug/mL Sodium 137 (137-145) mmol/L Potassium 4.2 (3.4-5.0) mmol/L Chloride 106 (98-107) mmol/L Carbon Dioxide 25 (22-30) mmol/L Anion Gap 6 (4-12) mmol/L BUN 16 (7-17) mg/dL Creatinine 0.85 (0.7-1.0) mg/dL Estim Creat Clear Calc Not Reportable Estimated GFR > 60 (59 - ) Glucose 116 H (65-110) mg/dL Lactic Acid 1.0 (0.7-2.0) mmol/L Calcium 9.1 (8.4-10.2) mg/dL Total Bilirubin 0.4 (0.2-1.3) mg/dL AST 36 (14-36) U/L ALT 19 (6-35) U/L Alkaline Phosphatase 76 (38-126) U/L Troponin I < 0.012 (0.000-0.034) ng/mL NT-Pro-B Natriuret Pep 94 (19.9-100) pg/mL Total Protein 7.7 (6.3-8.2) g/dL Albumin 4.2 (3.5-5.1) g/dL Influenza A (RT-PCR) Negative (Negative) Influenza B (RT-PCR) Negative (Negative) RSV (RT-PCR) Negative (Negative) SARS-CoV-2 RNA (RT-PCR) Negative (Negative) <Stacy Sorto MD - Last Filed: 06/18/25 20:03> Imaging Data Radiologist's impression: ITS Impressions Chest X-Ray 06/17/25 15:42 IMPRESSION: 1: NO ACUTE CARDIOPULMONARY DISEASE. Chest CTA 06/17/25 17:10 IMPRESSION: 1. No pulmonary embolism or other acute cardiopulmonary disease. 2. Mild emphysema. <Юлия Stern PA-C - Last Filed: 06/17/25 15:03> ITS Impressions Chest X-Ray 06/17/25 15:42 IMPRESSION: 1: NO ACUTE CARDIOPULMONARY DISEASE. Chest CTA 06/17/25 17:10 IMPRESSION: 1. No pulmonary embolism or other acute cardiopulmonary disease. 2. Mild emphysema. <Stacy Sorto MD - Last Filed: 06/18/25 20:03> ECG Data EKG #1: Attestation: I personally reviewed and interpreted this ECG as follows: <Stacy Sorto MD - Last Filed: 06/18/25 20:03> ECG completion date: 06/17/25 <Stacy Sorto MD - Last Filed: 06/18/25 20:03> ECG completion time: 13:53 <Stacy Sorto MD - Last Filed: 06/18/25 20:03> Interpretation: Normal sinus rhythm at a rate of 80 beats per minute. There is some R to R variation consistent with sinus arrhythmia, likely due to respiratory variation. OR interval 159. QRS 77. QT/QTC 373/432. Delayed R-wave progression across the precordial leads. No T-wave inversions. <Stacy Sorto MD - Last Filed: 06/18/25 20:03> Discharge Plan Discharge Clinical Impression: Shortness of breath, Emphysema lung, Nasal congestion, Acute cough <Юлия Stern PA-C - Last Filed: 06/17/25 15:03> Patient Disposition: Home <RAMÍREZ Segovia Last Filed: 06/17/25 15:03> Condition: Stable <RAMÍREZ Segovia Last Filed: 06/17/25 15:03> Instructions: Antibiotic Form, Emphysema (DC), COPD (Chronic Obstructive Pulmonary Disease) (DC), Acute Cough (ED), Shortness of Breath (ED) <RAMÍREZ Segovia Last Filed: 06/17/25 15:03> Additional Instructions: Use the medications for cough and nasal congestion. Follow-up with your primary care physician. The name of a jack of all trades/lung doctor is listed below if desired. In the interim continue taking all of your other medications as prescribed. Return to the emergency department any new or worsening symptoms. <Юлия Stern PA-C - Last Filed: 06/17/25 15:03> Patient Language: [place] <Юлия Stern PA-C - Last Filed: 06/17/25 15:03> Prescriptions: New Afrin (oxymetazoline) 0.05 % mist 2 spray intranasal Q12H PRN (Reason: nasal congestion) 3 Days Qty: 15 0RF benzonatate 100 mg capsule 100 mg PO BID PRN (Reason: cough) Qty: 20 0RF No Action prednisone 50 mg tablet 50 mg PO DAILY Qty: 5 0RF <Юлия Stern PA-C - Last Filed: 06/17/25 15:03> Follow-up/Referrals: Dr Rodriguez [Other] Referral Note: patient's PCP Abigail Nelson MD [Physician, Pulmonology] UNKNOWN,DOCTOR [Primary Care Provider] <Юлия Stern PA-C - Last Filed: 06/17/25 15:03> Time of Disposition: 17:44 <Юлия Stern PA-C - Last Filed: 06/17/25 15:03> 17:44 <Stacy Sorto MD - Last Filed: 06/18/25 20:03>
[2025-06-17 15:01] VITALS: BP 146/62; PULSE 80; RESP 20; TEMP 36.6; O2SAT 94
[2025-06-17 15:15] LABS: Hematocrit 42.0 % (37.0-47.0); Hemoglobin 13.7 g/dL (12.0-15.0); Immature Granulocyte Percent A 0.3 % (0-0.5); Lymphocytes Absolute Auto 2.29 K/mm3 (0.9-3.2); Mean Corpuscular HGB Conc 32.6 g/dl (32-36); Mean Corpuscular Hemoglobin 30.9 pg (26-34); Mean Corpuscular Volume 94.6 fl (80-100); Nucleated Red Blood Cells Absolute Auto 0.000 K/mm3 (0.0-0.012); Nucleated Red Blood Cells Perc 0.0 % (0.0-0.2); Platelet Count Result 349 k/mm3 (150-375); Red Blood Count 4.44 M/mm3 (4.2-5.4); White Blood Count 9.2 K/mm3 (4.5-10.0)
[2025-06-17 15:20] VITALS: BP 171/92; PULSE 111; RESP 20; O2SAT 98
[2025-06-17 15:27] LABS: Alanine Aminotransferase 19 U/L (6-35); Albumin Level 4.2 g/dL (3.5-5.1); Alkaline Phosphatase 76 U/L (38-126); Anion Gap 6 mmol/L (4-12); Aspartate Amino Transferase 36 U/L (14-36); Bilirubin,Total 0.4 mg/dL (0.2-1.3); Blood Urea Nitrogen 16 mg/dL (7-17); Calcium 9.1 mg/dL (8.4-10.2); Carbon Dioxide 25 mmol/L (22-30); Chloride 106 mmol/L (98-107); Estimated Glomerular Filt Rate > 60; Glucose 116 mg/dL (65-110); Potassium 4.2 mmol/L (3.4-5.0); Sodium 137 mmol/L (137-145); Total Protein 7.7 g/dL (6.3-8.2)
[2025-06-17 15:28] LABS: INR 1.0; Prothrombin Time 12.9 Seconds (11.1-14.7)
[2025-06-17 15:29] LABS: Partial Thromboplastin Time 27.5 Seconds (22.3-36.8)
[2025-06-17 15:39] LABS: NT Pro B Type Natriuretic Pept 94 pg/mL (19.9-100); Troponin I < 0.012 ng/mL (0.000-0.034)
[2025-06-17 15:51] LABS: Influenza A QL RT-PCR Negative (Negative); Influenza B QL RT-PCR Negative (Negative); RSV RNA, RT-PCR Negative (Negative); SARS-CoV-2 RNA PCR Negative (Negative)
--- OUTSIDE RECORDS SUMMARY | 2025-06-17 15:53 | XMS_ITS | Clinical Summary ---
Author Organization [facility] Address [address] [place] [address] Care Team Providers Care Inspector Repairer Name Role Phone Alis Hendrix RN Unavailable Unavailable Jasiel Rodriguez MD Primary Care Provider Source Comments [facility],non-owned Affiliates and Associated Physician Practices is amultiple site organization consisting of ambulatory clinics and hospital sitesin [place], [place], [place] and [place]. This disclosure is being madepursuant to the Care Everywhere program and may not contain all information available regarding this patient. Last updated 18.[facility] Allergies Active Allergy Reactions Criticality Noted Date Comments Aspirin Anaphylaxis High 07/09/2019 Shellfish Anaphylaxis High 07/09/2019 Throat swelling [place] Angioedema High 07/09/2019 Throat swelling, itching Medications * Be aware that medications may not be up to date on this document. Alwaysverify current medications with the patient. fluticasone-umeclidiniu m-vilanterol (Trelegy Ellipta) 100-62.5-25 MCG/ACT inhalerIndications:Reel Blade Bender Furnace Tender nasir obstructive pulmonary disease, unspecified COPD type (HCC) Inhale 1 (one) puff by mouth once daily 60 Each 5 04/29/20 25 Active albuterol HFA (Proventil; Ventolin; Proair) 108 (90 Base) MCG/ACT inhalerIndications:Reel Blade Bender Furnace Tender nasir obstructive pulmonary disease, unspecified COPD type [...] Department Care Team Description 04/30/2025 Results Follow-Up [facility] - Internal Medicine [address] [place] [phone] Jasiel Rodriguez MD 04/29/2025 10:45 AM PHYSICAL CHEMISTRY PROFESSOR Office Visit [facility] - Internal Medicine [address] [place] [phone] Jasiel Rodriguez MD Routine general medical examination [...] on file Legal Sex Female 6:14 AM PHYSICAL CHEMISTRY PROFESSOR Gender Identity Not on file Sexual Orientation Not on file Last Filed Vital Signs Vital Sign Reading Time Taken Comments Blood Pressure 137/88 04/29/2025 11:08 AM PHYSICAL CHEMISTRY PROFESSOR Pulse 90 04/29/2025 10:50 AM PHYSICAL CHEMISTRY PROFESSOR Temperature 36.2 C (97.1 F) 07/25/2022 9:18 AM PHYSICAL CHEMISTRY PROFESSOR Respiratory Rate 18 04/29/2025 10:50 AM PHYSICAL CHEMISTRY PROFESSOR Oxygen Saturation 95% 04/29/2025 10:50 AM PHYSICAL CHEMISTRY PROFESSOR Inhaled Oxygen Concentration - - Weight 50.3 kg (111 lb) 04/29/2025 10:50 AM PHYSICAL CHEMISTRY PROFESSOR Height 157.5 cm (5' 2) 04/29/2025 10:50 AM PHYSICAL CHEMISTRY PROFESSOR Body Mass Index 20.3 04/29/2025 10:50 AM PHYSICAL CHEMISTRY PROFESSOR Plan of Treatment Upcoming Encounters Date Type Department Care Team (Late st Contact Info) Description 10/29/2025 9:00 AM CDT Office Visit [facility] - Internal Medicine [address] [place] [address] Jasiel Rodriguez MD [address] [place] [address] Health Maintenance Due Date Last [...] Comments T4 FREE Routine 04/29/2025 12:03 PM PHYSICAL CHEMISTRY PROFESSOR URINALYSIS MICROSCOPIC ONLY REFLEXED Routine 04/29/2025 12:03 PM PHYSICAL CHEMISTRY PROFESSOR VITAMIN B12 Routine 04/29/2025 12:03 PM PHYSICAL CHEMISTRY PROFESSOR Type 2 diabetes mellitus without complication, without long-term current use of insulin ([facility]) LIPID PROFILE Routine 04/29/2025 12:03 PM PHYSICAL CHEMISTRY PROFESSOR Type 2 diabetes mellitus without complication, without long-term current use of insulin ([facility]) COMPREHENSIVE METABOLIC PANEL Routine 04/29/2025 12:03 PM PHYSICAL CHEMISTRY PROFESSOR Type 2 diabetes mellitus without complication, without long-term current use of insulin ([facility]) CBC W AUTO DIFFERENTIAL Routine 04/29/2025 12:03 PM PHYSICAL CHEMISTRY PROFESSOR Type 2 diabetes mellitus without complication, without long-term current use of insulin ([facility]) HEMOGLOBIN A1C Routine 04/29/2025 12:03 PM PHYSICAL CHEMISTRY PROFESSOR Type 2 diabetes mellitus without complication, without long-term current use of insulin ([facility]) MICROALB/CREAT RATIO URINE RANDOM PANEL Routine 04/29/2025 12:03 PM PHYSICAL CHEMISTRY PROFESSOR Type 2 diabetes mellitus without complication, without long-term current use of insulin ([facility]) TSH REFLEX FREE T4 Routine 04/29/2025 12 :03 PM PHYSICAL CHEMISTRY PROFESSOR Type 2 diabetes mellitus without complication, without long-term current use of insulin ([facility]) URINALYSIS REFLEX TO MICROSCOPIC NO CULTURE Routine 04/29/2025 12:03 PM PHYSICAL CHEMISTRY PROFESSOR Type 2 diabetes mellitus without complication, without long-term current use of insulin ([facility]) DEXA BONE DENSITY AXIAL SKELETON Routine 01/28/2022 9:24 AM CDT Menopause HEPATITIS C ANTIBODY Routine 07/09/2019 2:50 PM PHYSICAL CHEMISTRY PROFESSOR Need for hepatitis C screening test from Last 3 Months or Most Recently Relevant to Health Maintenance Results * (ABNORMAL) URINALYSIS MICROSCOPIC ONLY REFLEXED (04/29/2025 12:03 PM PHYSICAL CHEMISTRY PROFESSOR) WBC UA 0-5 0 - 5 # /hpf [facility] INSURANCE BILL RBC UA 6-10(A) 0 - 5 # /hpf [facility] INSURANCE BILL Epithelial Cells (non renal) 0-2 0 - 5 /hpf [facility] INSURANCE BILL Mucus UA 1+ /LPF [facility] INSURANCE BILL Bacteria UA None seen None Seen [facility] INSURANCE BILL 04/29/2025 12:0 3 PM PHYSICAL CHEMISTRY PROFESSOR 04/29/2025 Narrative [facility] INSURANCE BILL - 04/29/2025 9:08 PM PHYSICAL CHEMISTRY PROFESSOR Performed at: [address] [place] [address], [place] [phone] Bpm Analyst: Donna Lozano [facility], Phone: [phone] Jasiel Rodriguez MD LAB - URINALYSIS ORDERA BLES Final Result [facility] INSURANCE BILL [address] [place] [address] * (ABNORMAL) TSH REFLEX FREE T4 (04/29/2025 12:03 PM PHYSICAL CHEMISTRY PROFESSOR) TSH 5.586(H) 0.350 - 4.940 uIU/mL [facility] INSURANCE BILL Blood BLOOD SPECIMEN / Unknown 04/29/2025 12:03 PM PHYSICAL CHEMISTRY PROFESSOR 04/29/2025 Narrative [facility] INSURANCE BILL - 04/30/2025 12:08 AM PHYSICAL CHEMISTRY PROFESSOR Performed at: [address] [place], [place] [id number], [place] [id number] Bpm Analyst: Donna Lozano [facility], Phone: [phone] Jasiel Rodriguez MD LAB - CHEMISTRY ORDERAB LES Final Result Performing Organization Address City/[facility]/ZIP Co de Phone Number [facility] INSURANCE BILL [address] [place] [address] * MICROALB/CREAT RATIO URINE RANDOM PANEL (04/29/2025 12:03 PM PHYSICAL CHEMISTRY PROFESSOR) Creatinine Urine 179.65 mg/dL [facility] INSURANCE BILL Microalbumin Urine 1.4 mg/dL [facility] INSURANCE BILL Microalbumin/Crea tinine Ratio 7 <30 mg/g [facility] INSURANCE BILL Urine URINE SPECIMEN OBTAINED BY CLEAN CATCH PROCEDURE / Unknown 04/29/2025 12:03 PM PHYSICAL CHEMISTRY PROFESSOR 04/29/2025 Narrative [facility] INSURANCE BILL - 04/29/2025 9:08 PM PHYSICAL CHEMISTRY PROFESSOR Performed at: [address] [place], [place] [address], [place] [phone] Bpm Analyst: Donna Lozano [facility], Phone: [phone] Jasiel Rodriguez MD LAB - URINE CHEMISTRY O RDERABLES Final Result Performing Organization Address [facility] Co de Phone Number [facility] INSURANCE BILL [address] [place] [address] * (ABNORMAL) URINALYSIS REFLEX TO MICROSCOPIC NO CULTURE (04/29/2025 12:03 PM PHYSICAL CHEMISTRY PROFESSOR) [facility] Specific [place] UA 1.031(H) 1.005 - 1.030 [facility] INSURANCE [...] CATCH PROCEDURE / Unknown 04/29/2025 12:03 PM PHYSICAL CHEMISTRY PROFESSOR 04/29/2025 Narrative [facility] INSURANCE BILL - 04/29/2025 9:08 PM PHYSICAL CHEMISTRY PROFESSOR Performed at: 01 - [facility] [address] [place], [place] [id number] Bpm Analyst: Donna Lozano [facility], Phone: [phone] Jasiel Rodriguez MD LAB - URINALYSIS ORDERA BLES Final Result [facility] INSURANCE BILL [address] [place] [address] * (ABNORMAL) HEMOGLOBIN A1C (04/29/2025 12:03 PM PHYSICAL CHEMISTRY PROFESSOR) Hemoglobin A1c 6.3(H) <5.7 % [facility] [...] for the measurement of HbA1c is a [facility] Glycohemoglobin Standardization Program (NGSP) certi fied method. Blood BLOOD SPECIMEN / Unknown 04/29/2025 12:03 PM PHYSICAL CHEMISTRY PROFESSOR 04/29/2025 Narrative [facility] INSURANCE BILL - 04/29/2025 11:08 PM PHYSICAL CHEMISTRY PROFESSOR Performed at: [facility] [address] [place], [place] [id number] Bpm Analyst: Donna Lozano [facility], Phone: [phone] Jasiel Rodriguez MD LAB - CHEMISTRY ORDERAB LES Final Result [facility] INSURANCE BILL [address] [place] [address] * (ABNORMAL) CBC WITH DIFFERENTIAL (04/29/2025 12:03 PM PHYSICAL CHEMISTRY PROFESSOR) WBC 9.2 4.0 - 10.7 x10E9/L [facility] [...] BLOOD SPECIMEN / Unknown 04/29/2025 12:03 PM PHYSICAL CHEMISTRY PROFESSOR 04/29/2025 Narrative [facility] INSURANCE BILL - 04/29/2025 9:08 PM PHYSICAL CHEMISTRY PROFESSOR Performed at: 01 - [place] [address], [place], [place] [phone] Bpm Analyst: Donna Lozano [facility], Phone: [phone] Jasiel Rodriguez MD LAB - HEMATOLOGY ORDERA BLES Final Result [facility] INSURANCE BILL [address] [place] [address] * (ABNORMAL) COMPREHENSIVE METABOLIC PANEL (04/29/2025 12:03 PM PHYSICAL CHEMISTRY PROFESSOR) Glucose 105(H) 70 - 99 mg/dL [facility] INSURANCE BILL BUN 22 7 - 26 mg/dL [facility] INSURANCE BILL Creatinine 0.93 0.50 - 1.20 mg/dL [facility] INSURANCE BILL eGFR by CKD-EPI 63(L) >=90 mL/min/1.7 3 m2 [facility] INSURANCE BILL Comment: Estimated Glomerular Filtration Rate (eGFR) calculated using the CKD-EPI Creatinine Equation (2020), per the National [place] Foundation and [place] Society of Nephrology recommend ations. Sodium 143 [...] BLOOD SPECIMEN / Unknown 04/29/2025 12:03 PM PHYSICAL CHEMISTRY PROFESSOR 04/29/2025 Narrative [facility] INSURANCE BILL - 04/29/2025 11:08 PM PHYSICAL CHEMISTRY PROFESSOR Performed at: [address] [place] [address] [place] [phone] Bpm Analyst: Donna Lozano [facility], Phone: [phone] Jasiel Rodriguez MD LAB - CHEMISTRY ORDERAB LES Final Result [facility] INSURANCE BILL [address] [place] [address] * VITAMIN B12 (04/29/2025 12:03 PM PHYSICAL CHEMISTRY PROFESSOR) Pathologist [facility] Vitamin B12 454 213 - 816 pg/mL [facility] INSURANCE BILL Blood BLOOD SPECIMEN / Unknown 04/29/2025 12:03 PM PHYSICAL CHEMISTRY PROFESSOR 04/29/2025 Narrative [facility] INSURANCE BILL - 04/29/2025 11:08 PM PHYSICAL CHEMISTRY PROFESSOR Performed at: [address] [place] [address] [address] [place] [phone] Bpm Analyst: Donna Lozano [facility], Phone: [phone] Jasiel Rodriguez MD LAB - CHEMISTRY ORDERAB LES Final Result [facility] INSURANCE BILL [address] [place] [address] * T4 FREE (04/29/2025 12:03 PM PHYSICAL CHEMISTRY PROFESSOR) T4 Free Direct 0.96 0.70 - 1.50 ng/dL [facility] INSURANCE BILL 04/29/2025 12:0 3 PM PHYSICAL CHEMISTRY PROFESSOR 04/29/2025 Narrative [facility] INSURANCE BILL - 04/30/2025 12:08 AM PHYSICAL CHEMISTRY PROFESSOR Performed at: [address] [place], [place] [address] [address], [place] [phone] Bpm Analyst: Donna Lozano [facility], Phone: [phone] Jasiel Rodriguez MD LAB - CHEMISTRY ORDERAB LES Final Result [facility] INSURANCE BILL [address] [place] [address] * (ABNORMAL) LIPID PROFILE (LIPID PANEL) (04/29/2025 12:03 PM PHYSICAL CHEMISTRY PROFESSOR) [facility] Cholesterol 230(H) <200 mg/dL [facility] INSURANCE BILL Triglycerides 116 <150 mg/dL [facility] INSURANCE BILL HDL Cholesterol 77 >40 mg/dL [facility] INSURANCE BILL VLDL Calculated 23 <=30 mg/dL [facility] INSURANCE BILL LDL Calculated 130(H) <130 mg/dL [facility] INSURANCE BILL Comment:LDL is calculated us ing the Friedewald equation. Blood BLOOD SPECIMEN / Unknown 04/29/2025 12:03 PM PHYSICAL CHEMISTRY PROFESSOR 04/29/2025 Narrative [facility] INSURANCE BILL - 04/29/2025 11:08 PM PHYSICAL CHEMISTRY PROFESSOR Performed at: [address] [place] [address], [place] [phone] Bpm Analyst: Donna Lozano [facility], Phone: [phone] us Jasiel Rodriguez MD LAB - CHEMISTRY ORDERAB LES Final Result [facility] INSURANCE BILL [address] [place] [address] * DEXA BONE DENSITY AXIAL SKELETON (01/28/2022 9:24 AM CDT) Anatomical Region Laterality Modality Mammography 01/28/2022 9:45 AM CDT Narrative 01/28/2022 9:47 AM CDT Procedure Title from EPIC/RIS: DEXA BONE DENSITY AXIAL SKELETON HISTORY: Z78.0: Asymptomatic menopausal state postmenopausal woman LOCATION: [facility] LUMBAR SPINE (L1-L4): Bone mineral density [...] Wood MD - 01/28/2022 Procedure Title from [facility]/RIS: DEXA BONE DENSITY AXIAL SKELETON HISTORY: Z78.0: Asymptomatic menopausal state postmenopausal woman LOCATION: [facility] LUMBAR SPINE (L1-L4): Bone mineral density [...] * HEPATITIS C ANTIBODY (07/09/2019 2:50 PM PHYSICAL CHEMISTRY PROFESSOR) Hepatitis C Antibody Non Reactive Non Reactive [facility] INSURANCE BILL Comment: Non Reactive - Antibodies to Hepatitis C virus (HCV) were no t detected, result does not exclude early acute HCV infection. FASTING Blood BLOOD SPECIMEN / Unknown 07/09/2019 2:50 PM PHYSICAL CHEMISTRY PROFESSOR 07/09/2019 Narrative Resulting Agency Comment Lab Testing performed at: [facility] [address] [place] [phone] [place] Skylar Lux MD LAB - CHEMISTRY ORDERABLES Final Result [facility] INSURANCE BILL [address] [place] [address] from Last 3 Months or Most Recently Relevant to Health Maintenance Insurance MEDICARE Advance Directives * Full Code (Latest Code Status on File) Date Activated Date Inactivated Comments 04/26/2016 12:48 AM 04/29/2016 9:06 PM Care Teams Inspector Repairer Relationship Specialty Start Date End Date Jasiel Rodriguez MD [address] [place] [address] PCP - General Internal Medicine 04/29/25 Alis Hendrix RN Registered Nurse - Cardiopulmonary Rehab 04/26/16
--- OUTSIDE RECORDS SUMMARY | 2025-06-17 15:53 | XMS_ITS | Encounter Summary ---
Author Organization [facility] Address [address] [place] [address] Care Team Providers Care Industry Consultant Name Role Phone Alis Hendrix RN Unavailable Unavailable Jasiel Rodriguez MD Primary Care Provider Encounter Details Date Type Department Care Team (Late st Contact Info) Description 04/30/2025 Results Follow-Up [facility] - Internal Medicine [address] [place] [address] Jasiel Rodriguez MD [address] [place] [address] [address] [place] [address] Social History Tobacco Use Types [...] on file Legal Sex Female 6:14 AM SEMICONDUCTOR PACKAGES LEAK TESTER Gender Identity Not on file Sexual Orientation Not on file documented as of this encounter Functional Status * Is person deaf or have serious hearing difficulty? Answer Date of Assessment Author No 04/26/2016 1:51 AM SEMICONDUCTOR PACKAGES LEAK TESTER Lila Sterling RN * Is person blind [...] 9:00 AM CDT Office Visit [facility] - Internal Medicine [address] [place] [address] [place] [phone] Jaseil Rodriguez MD [address] [place] [address] [address] [place] [address] documented as of this encounter Visit Diagnoses Not on filedocumented in this encounter Care Teams Industry Consultant Relationship Specialty Start Date End Date Jasiel Rodriguez MD [address] [place] [phone] PCP - General Internal Medicine 04/29/25 Alis Hendrix RN Registered Nurse - Cardiopulmonary Rehab 04/26/16 documented as of this encounter
[2025-06-17 17:32] VITALS: PULSE 83; RESP 20
[2025-06-17] MEDS: IPRATROPIUM 0.5 MG/ALBUTEROL SULFATE 2.5 MG (BASE) AMPUL.NEB 3 ML INHALATION (17:32)
[2025-06-17 17:37] VITALS: PULSE 81; RESP 20
[2025-06-17] MEDS: OXYMETAZOLINE HCL 0.05% NAS 15 ML BTL (*BKC) 1 SPRAY NASAL (18:51)
[2025-06-17] MEDS: BENZONATATE 100 MG CAPSULE PO (18:56)
[2025-06-17 19:33] VITALS: BP 148/81; PULSE 83; RESP 18; O2SAT 100
== END 2025-06-17 19:34 | disposition home or self-care (01) ==
PROVIDERS: Physician Assistant; Emergency Provider Student in an Organized Health Care Education/Training Program
DX: R06.02 Shortness of breath (principal); J43.9 Emphysema, unspecified; R09.81 Nasal congestion; R05.1 Acute cough; Z20.822 Contact with and (suspected) exposure to COVID-19
CPT/HCPCS: 36415; 71046; 71275; 80053; 83605; 83880; 84484; 85025; 85380; 85610; 85730; 87637; 93005; 94640; 99284; A9270; Q9967